=== PATIENT | female | born 1985 | race Hispanic/Latino ===

== ENCOUNTER 2025-04-27 23:01 | Emergency (ER) | payer BC, SELFPAY ==
[2025-04-27 23:11] VITALS: BP 152/92
[2025-04-27 23:37] LABS: Urine Character Clear (Clear)
[2025-04-27 23:42] LABS: Hematocrit 39.3 % (37.0-47.0); Hemoglobin 13.2 g/dL (12.0-16.0); Mean Corp Hgb Conc. 33.6 g/dL (33.0-37.0); Mean Corpuscular Volume 91.6 fL (81.0-99.0); Nucleated Red Blood Cells % 0 %; Platelet Count 388 10^3/uL (130-400); Red Cell Dist. Width 12.3 % (11.5-14.5)
[2025-04-27 23:48] LABS: Urine Squamous Cell >30 /LPF (Few)
[2025-04-27 23:49] LABS: Urine Red Blood Cell None Seen /HPF (0-2)
[2025-04-27 23:49] LABS: HCG, Serum Qualitative Screen Positive
[2025-04-28 00:08] LABS: ALT (SGPT) 17 U/L (0-35); AST (SGOT) 19 U/L (14-36); Albumin 4.7 g/dl (3.5-5.0); Alkaline Phosphatase 63 U/L (38-126); Blood Urea Nitrogen 13 mg/dl (7-17); Calcium 9.4 mg/dl (8.4-10.2); Carbon Dioxide 14 mmol/L (22-30); Chloride 105 mmol/L (98-107); Glucose 195 mg/dl (70-99); Potassium 4.5 mmol/L (3.5-5.1); Sodium 136 mmol/L (135-145); Total Protein 7.6 g/dl (6.3-8.2); eGFR > 60.00
[2025-04-28 01:50] VITALS: BP 141/85
[2025-04-28 01:58] VITALS: BP 131/88
[2025-04-28 01:59] VITALS: BMI 23.3
--- NOTE | 2025-04-28 01:59 | ED.GENMED ---
History of Present Illness
General
Chief Complaint: Heart Rate Problem
Source: patient and spouse
Exam Limitations: none
Time Seen by Provider: 04/28/25 01:51
Nursing documentation reviewed up to this point in time: agreed with
History of Present Illness
History of Present Illness:
39-year-old female with history of IBS presents to the ER for evaluation of abdominal discomfort and multiple other complaints. Patient reports that 2 days ago she started to notice some lower abdominal bloating/discomfort. She said she was having
some increased urinary frequency. She said she went to urgent care initially and was diagnosed with a UTI. She was started on Bactrim and phenazopyridine and has been taking these for the past 2 days. Despite this she said she has still had some
bloating and urinary frequency. She says that she was having some chills tonight noticed increased heart rate, dry mouth. Came to the ER for assessment. She denies any flank pain. She denies any vomiting or diarrhea. She is chronically
constipated. She denies any vaginal bleeding. She denies any other acute complaints. Last menstrual period 2 months ago the patient says that she has irregular menstrual cycles.
Review of Systems
Review of Systems
All Other Systems: ROS reviewed and negative except as documented in HPI and ROS
Constitutional: Reports chills; Denies fever
Respiratory: Denies trouble breathing
Cardiac: Denies chest pain
ABD/GI: Reports abdominal pain and constipated (Chronic); Denies nausea, vomiting or diarrhea
: Reports frequency; Denies dysuria, flank pain or bleeding
Musculoskeletal: Denies neck pain or back pain
Neurological: Denies headache
Phy Exam
Physical Exam
Physical Exam:
General: Awake, alert, oriented x3; no acute distress
Head: Normocephalic, atraumatic
Eyes: Conjunctiva normal, sclera anicteric
Throat: Airway intact, handling secretions
Neck: Trachea midline, supple without meningismus
Lungs: Clear to auscultation bilaterally, no wheezing, rales, rhonchi
Heart: Regular rate and rhythm, no murmurs, gallops, or rubs�triage tachycardia normalized by my assessment
Abd: Soft, non distended, nontender to deep palpation
Neuro: Grossly intact
Skin: No rash in area of concern
Extremities: Warm and well-perfused
Scores
Heart Failure Risk
Heart Failure Risk Score: Not Applicable
Heart Score for Chest Pain Patients
STEMI patient?: Not applicable
Withdrawal Assessment of Alcohol
Withdrawal Assessment Completed?: Not applicable
Course
Orders/Labs/Results
Orders:
Orders
04/27/25 23:02
Electrocardiogram (*1) Urgent
Reason for Study: Chest Pain
EKG- Treatment ONCE
04/27/25 23:18
Test Result ONCE
04/27/25 23:25
Complete Blood Count/With Diff Urgent
Comprehensive Metabolic Panel Urgent
HCG, Serum Qualitative Screen Urgent
04/27/25 23:29
Urinalysis Reflex To Culture Urgent
Date Specimen was Collected: 04/27/25
Time Specimen was Collected: 23:18
Urine Microscopic Reflex Cult Urgent
Urine Culture Urgent
PADMINI Source: U
Specimen Description:
Date Specimen was Collected: 04/27/25
Time Specimen was Collected: 23:18
04/28/25 01:58
0.9% Sodium Chloride 1000 ml [Nss] 1,000 ml IV BOLUS
US 1st Trimester Urgent
Comment:
Reason For Exam: abd pain, +preg
04/28/25 02:09
Basic Metabolic Panel Urgent
Beta HCG Quantitative Urgent
Is this a screen?: No
Abnormal Lab Results
04/27/25 04/27/25 04/28/25
23:25 23:29 02:09
WBC 13.3 H 10^3/uL
(4.8-10.8)
Absolute Neuts (auto) 7.3 H 10^3/uL
(1.4-6.5)
Absolute Lymphs (auto) 5.0 H 10^3/uL
(1.2-3.4)
Absolute Monos (auto) 0.7 H 10^3/uL
(0.1-0.6)
Carbon Dioxide 14 L* mmol/L 17 L mmol/L
(22-30) (22-30)
Glucose 195 H mg/dl 114 H mg/dl
(70-99) (70-99)
Urine Nitrite (Reflex) Positive A
(Negative)
Urine Bilirubin 3+ A
(Negative)
Urine Urobilinogen 3+ A
(Neg - 1+)
Leukocyte Esterase Rfl 1+ A
(Negative)
Urine Bacteria (Reflex) Few A
(Negative)
Urine Albumin (Reflex) 1+ A
(Neg - Trace)
04/27/25 23:25
04/28/25 02:09
Vital Signs
Initial and Last Documented VS:
Initial Vital Signs
Temp Pulse Resp BP Pulse Ox
36.8 C 126 26 152/92 100
04/27/25 23:11 04/27/25 23:11 04/27/25 23:11 04/27/25 23:11 04/27/25 23:11
Last Documented Vital Signs
Temp Pulse Resp BP Pulse Ox
37.2 C 109 16 139/92 97
04/28/25 01:58 04/28/25 04:32 04/28/25 04:32 04/28/25 04:32 04/28/25 04:32
MDM/Problems Addressed
Differential Diagnosis Includes:
UTI, /ectopic , constipation
MDM/Problems Addressed:
39-year-old female presents with abdominal discomfort and bloating, urinary frequency tonight also had rapid heart rate and some dry mouth, chills. She was hypertensive and tachycardic in triage but vital signs are normalized by my assessment.
Physical exam is as above. She had lab work sent in triage including a CBC which showed mild leukocytosis. Chemistry showed metabolic acidosis�patient was apparently quite anxious on arrival and hyperventilating. Will repeat this lab. Her
screen was positive�this was unknown to the patient she says she had a negative home test last week. Urinalysis appears contaminated and results likely skewed as patient has been on Pyridium. Would continue antibiotics
regardless with positive screen and positive bacteria on urinalysis but my suspicion is that all of her symptoms are related to . Will plan to check pelvic ultrasound to rule out ectopic, check hCG quant, repeat labs as above.
hCG quant ~40,000; ultrasound shows single IUP approximately 6 weeks 1 day�no pole yet. Repeat chemistry improving. Vital signs have been stable. Stable for discharge on vitamin, will change from Bactrim to cefdinir in first
trimester of . Will refer to her GIS TECHNICIAN for close outpatient follow-up. Patient comfortable with this plan. All questions answered.
*Radiology
Radiology exam reviewed: radiology read reviewed
*Pulse Oximetry
SaO2: 100
Oxygen Mode of Delivery: Room air
Patient hypoxic: no (100%)
*Critical Care Note
Total Time (30-74mins, 75-104mins- exclusive of procedures): Not Applicable
Data Reviewed
Source: patient and spouse
ED Attending Note
-
Portions of this chart may have been created with voice recognition software.� Occasional wrong word or��sound alike� substitutions may have occurred due to the inherent limitations of voice recognition software.
Discharge Plan
Departure
Patient Disposition: Home (Routine Discharge)
Date of Disposition: 04/28/25
Time of Disposition: 04:19
Patient with high blood pressure during this ER visit?: Yes
Discharge Problem:
, UTI (urinary tract infection)
Instructions: symptoms
Prescriptions:
New
cefdinir 300 mg capsule
300 mg PO BID 7 Days Qty: 14 0RF
Referrals:
Ileana Shannon MD [Active, Gynecology] - Call in 1-3 days for appt
Referral Note: You should see your GIS TECHNICIAN as soon as possible after finding out you are today. If you do not have an GIS TECHNICIAN you can follow-up at the number above.
Activity Restrictions/Additional Instructions:
You should start taking a vitamin. You should follow-up with the GIS TECHNICIAN as soon as possible after your ER visit today. You should switch antibiotics to the one prescribed in the emergency room today and take it for the full course as
prescribed. You should avoid taking ibuprofen for pain�if you need something for pain you should take Tylenol. You should not smoke or drink alcohol while . You should minimize caffeine intake while .
Thank you for visiting the Emergency Department at [facility].
1. Please schedule a follow up appointment as directed. Call first thing tomorrow morning to make an appointment.
2. If indicated, please take your medications as instructed and indicated on discharge paperwork.
3. If any of your symptoms do not improve, or persist, or become more severe within 6-12 hours, please return to the emergency department for further care.
4. Please return to the emergency department if you develop a headache, neck pain/stiffness, fever greater than 100.4F, chest pain, shortness of breath, persistent nausea, vomiting, slurred speech, difficulty walking, numbness/tingling, weakness,
signs of infection or any other symptoms that are worrisome to you.
Please call [phone] if you have any questions.
Interventions
Interventions:
*Risk Screen - Suicide Last Done: 04/27/25 23:11
*General Assessment Last Done: 04/27/25 23:11
*Neglect/Abuse Screening Last Done: 04/27/25 23:11
*ED- Fall Risk Assessment Last Done: 04/27/25 23:11
*ED COVID-19 Vaccine History Last Done: 04/27/25 23:11
*Nursing Disposition Last Done: 04/28/25 04:32
ED- Cardiac Assessment Last Done: 04/28/25 02:12
ED- Pulmonary Assessment Last Done: 04/28/25 02:12
Discharge Date and Time
Discharge Date/Time: 04/28/25 04:33
Print Language: LUXEMBOURGER
[2025-04-28] MEDS: NSS 1000 IV (02:11)
[2025-04-28 02:40] LABS: Blood Urea Nitrogen 12 mg/dl (7-17); Calcium 9.8 mg/dl (8.4-10.2); Carbon Dioxide 17 mmol/L (22-30); Chloride 104 mmol/L (98-107); Estimated Creatinine Clearance 82 ml/min; Glucose 114 mg/dl (70-99); Potassium 4.4 mmol/L (3.5-5.1); Sodium 135 mmol/L (135-145); eGFR > 60.00
[2025-04-28 03:00] VITALS: BP 139/93
[2025-04-28 03:33] LABS: Beta HCG Quantitative 40808.00 mIU/ml
[2025-04-28 04:00] VITALS: BP 119/83
[2025-04-28 04:32] VITALS: BP 139/92
== END 2025-04-28 04:33 | disposition home or self-care (01) ==
LOC: EMR 23:01
PROVIDERS: EMERGENCY PHYSICIAN Emergency Medicine
DX: O23.41 Unspecified infection of urinary tract in pregnancy, first trimester (principal); N39.0 Urinary tract infection, site not specified; O99.111 Other diseases of the blood and blood-forming organs and certain disorders involving the immune mechanism complicating pregnancy, first trimester; D72.829 Elevated white blood cell count, unspecified; O99.281 Endocrine, nutritional and metabolic diseases complicating pregnancy, first trimester; E87.20 Acidosis, unspecified; O99.611 Diseases of the digestive system complicating pregnancy, first trimester; K58.9 Irritable bowel syndrome, unspecified; Z3A.01 Less than 8 weeks gestation of pregnancy
CPT/HCPCS: 99284; 96360; 76801; 80048; 80053; 81003; 81015; 84702; 84703; 85025; 87086; 93005

== ENCOUNTER 2025-06-05 06:23 | Day surgery (SDC) | payer BC, SELFPAY ==
--- NOTE | 2025-06-02 12:49 | PTCARENOTE ---
Patients 04/27 ECG abnormal- reviewed by Dr. Paula- no additional interventions required
[2025-06-05 11:36] VITALS: BMI 25.0
[2025-06-05 11:39] VITALS: BP 137/93; BMI 25.0
[2025-06-05] MEDS: NORMOSOL-R/PLASMALYTE-A 1000 IV (11:44)
[2025-06-05] MEDS: VIBRAMYCIN 200 MG PO (11:44)
[2025-06-05 12:03] LABS: Hematocrit 41.0 % (37.0-47.0); Hemoglobin 14.3 g/dL (12.0-16.0)
[2025-06-05 12:36] VITALS: BP 103/68; BP_SYST 16
[2025-06-05 12:51] VITALS: BP 104/72; BP_SYST 15
[2025-06-05 13:00] VITALS: BP 117/82
[2025-06-05 13:15] VITALS: BP 140/86
[2025-06-05 13:30] VITALS: BP 131/80
== END 2025-06-05 13:40 | disposition home or self-care (01) ==
LOC: SDS 06:23
PROVIDERS: ATTENDING PHYSICIAN Obstetrics & Gynecology
DX: O02.1 Missed abortion (principal); Z3A.10 10 weeks gestation of pregnancy
CPT/HCPCS: 59820; 85014; 85018; 86850; 86900; 86901; 88305